=== PATIENT | male | born 1975 | race Caucasian/White ===

== ENCOUNTER 2025-02-17 10:09 | Emergency (ER) | payer BC, SELFPAY ==
[2025-02-17 10:18] VITALS: BP 130/91
--- NOTE | 2025-02-17 11:28 | ED.GENMED ---
History of Present Illness
General
Chief Complaint: Musculo-Skeletal Complaint
Source: patient
Exam Limitations: none
Time Seen by Provider: 02/17/25 11:05
History of Present Illness
History of Present Illness:
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 He has been having discomfort in his right knee for the past week or so. He denies any
specific injury. Pain is located on the lateral aspect of the knee and radiates to the inferior patella. He is also having some clicking with range of motion. Patient was at work today and he stepped down. His knee twisted and he has had
worsening pain since then. Symptoms feel similar to his prior meniscus injury on the contralateral knee.
Past History
Past History
ED Past [facility] History: [facility]
ED Past Surgical History: None, Orthopedic and Other (Hernia repair)
Social History
Tobacco: Non-smoker
Alcohol: Occasional
Drug: None
Personal:
Living: with family
Employment: Employed
Family History
Family History: Other (Family with kidney stones)
Phy Exam
General Physical Exam
General Presentation: well appearing and no apparent distress
General age: appears stated age
General Skin: warm and dry
General Habitus: normal
General Mental: alert
Neurological Exam
Neurological Exam: alert
Musculoskeletal Exam
Musculoskeletal Exam: other (R knee: Mild swelling noted. No erythema or warmth. No deformity. No tenderness to palpation of the joint. ROM of knee elicits pain. He is able to flex to about 90 degrees. 2+ PT pulse. )
Skin Exam
Skin Exam: normal color and warm/dry
Psychiatric Exam
Psychiatric Exam: normal mood/affect
Course
Orders/Labs/Results
Orders:
Orders
02/17/25 11:27
Knee Immobilizer Right-Treatme ONCE
CR Knee- Right 4 Or More View* Urgent
Comment:
Reason For Exam: pain
Vital Signs
Initial and Last Documented VS:
Initial Vital Signs
Temp Pulse Resp BP Pulse Ox
98.4 F 77 16 130/91 98
02/17/25 10:18 02/17/25 10:18 02/17/25 10:18 02/17/25 10:18 02/17/25 10:18
Last Documented Vital Signs
Temp Pulse Resp BP Pulse Ox
98.4 F 77 16 130/91 98
02/17/25 10:18 02/17/25 10:18 02/17/25 12:12 02/17/25 10:18 02/17/25 10:18
MDM/Problems Addressed
Differential Diagnosis Includes:
49yoM here with R knee pain x 1 week. Twisted knee today and pain is now worse. Mild swelling noted. There are no clinical signs of septic arthritis including no erythema, warmth, or pain with micromotion. RLE is neurovascularly intact with palpable
PT pulse. Differential diagnosis includes: ligamentous injury, meniscus injury, doubt fracture
X-rays of knee obtained which appear normal per my interpretation. Patient placed in knee immobilizer. Supportive care discussed. Advised f/u with orthopedics.
*Critical Care Note
Total Time (30-74mins, 75-104mins- exclusive of procedures): Not Applicable
ED Attending Note
-
Portions of this chart may have been created with voice recognition software.� Occasional wrong word or��sound alike� substitutions may have occurred due to the inherent limitations of voice recognition software.
Discharge Plan
Departure
Patient Disposition: Home (Routine Discharge)
Date of Disposition: 02/17/25
Time of Disposition: 12:19
Patient with high blood pressure during this ER visit?: No
Discharge Problem:
Acute pain of right knee
Instructions: Knee Pain (DC)
Prescriptions:
No Action
hydrocodone-acetaminophen 1 TABLET tablet
1 tab PO Q4HPRN PRN (Reason: pain) Qty: 10 0RF
ibuprofen 600 MG tablet
600 mg PO Q6HPRN PRN (Reason: pain) Qty: 20 0RF
ondansetron 4 MG tablet,disintegrating
4 mg PO TIDPRN PRN (Reason: nausea/vomiting) Qty: 10 0RF
hydrocodone-acetaminophen 5-300 mg tablet
1 tab PO Q4H PRN (Reason: Pain) Qty: 14 0RF
Referrals:
Kenney Tobin MD [Family Provider] -
Danny Hale MD [Active] -
Activity Restrictions/Additional Instructions:
Rest, ice, compress, and elevate your knee. Wear knee immobilizer and use crutches as needed. Take Tylenol and ibuprofen for pain.
Please call today to schedule a follow-up with orthopedics.
Interventions
Interventions:
*Risk Screen - Suicide Last Done: 02/17/25 10:18
*Neglect/Abuse Screening Last Done: 02/17/25 10:18
*ED- Fall Risk Assessment Last Done: 02/17/25 12:12
*Nursing Disposition Last Done: 02/17/25 12:29
ED-Musculoskeletal Assessment Last Done: 02/17/25 12:12
Discharge Date and Time
Discharge Date/Time: 02/17/25 12:31
Print Language: WOLOF
== END 2025-02-17 12:31 | disposition home or self-care (01) ==
LOC: EMR 10:09
PROVIDERS: EMERGENCY PHYSICIAN Emergency Medicine; FAMILY PHYSICIAN Family Medicine
DX: M25.561 Pain in right knee (principal); X50.1XXA Overexertion from prolonged static or awkward postures, initial encounter
CPT/HCPCS: 29505; 99283; 73564

== ENCOUNTER 2025-08-04 06:27 | Day surgery (SDC) | payer BC, SELFPAY ==
[2025-07-27 14:15] VITALS: BMI 31.3
[2025-08-04] VITALS (8 sets, daily range): BP systolic 112–144; BP diastolic 60–91; BMI 31.3
--- NOTE | 2025-08-04 08:30 | W.SUR.PREOP ---
Pre-Operative Surgical Note
-
I have examined this patient prior to the performance of the scheduled procedure.
The patient's condition is unchanged from the time of the current History and
Physical and the patient is able to undergo the scheduled procedure.
--- NOTE | 2025-08-04 08:30 | HP.FOC2 ---
Focused History & Physical
Chief Complaint
HPI:
Chief Complaint: Right inguinal hernia
HPI / Indication for Planned Procedure: This is a 49-year-old male who presents with a symptomatic right inguinal hernia. Will plan for robotic right inguinal hernia repair with mesh.
Relevant Past Medical History: Negative
Relevant Social History: Negative
Relevant Family History: Negative
Relevant Past Surgical History: Positive for (Open left inguinal hernia repair with mesh.)
Review of Systems
Review of Pertinent Systems: All Systems Negative
Medication
See Medication form for detailed medications: Yes
Medication List (including Herbals & OTC):
calcium carbonate (Tums) 200 mg PO PRN PRN GERD 07/28/25
testosterone cypionate 200 mg/mL intramuscular syringe 200 mg IM Q3W 07/28/25
Medications Reviewed: Yes
Allergies and Reactions
Patient has Allergies: No
Noted Allergies and Reactions:
Allergy/AdvReac Type Severity Reaction Status Date / Time
No Known Allergies Allergy Verified 07/28/25 13:34
Pertinent Physical Exam
All Other Systems: Negative
Head/Neck: Normal
Diagnosis / Assessment
This is a 49-year-old male who presents with a symptomatic right inguinal hernia. Will plan for robotic right inguinal hernia repair with mesh.
Plan / Procedure
This is a 49-year-old male who presents with a symptomatic right inguinal hernia. Will plan for robotic right inguinal hernia repair with mesh.
Anesthesia/Sedation to be done by Anesthesia Provider: Yes
[2025-08-04] MEDS: TYLENOL 1000 MG PO (08:34)
[2025-08-04] MEDS: NORMOSOL-R/PLASMALYTE-A 1000 IV (08:40)
--- NOTE | 2025-08-04 10:39 | W.IMMPOSTOP ---
Surgical Immed Post Op Note
-
Primary Surgeon: Cristi Trujillo MD
Assisting Surgeon: None
Pre-op Diagnosis: Right inguinal hernia
Post-op Diagnosis: Same
Procedure Performed:
Robotic right inguinal hernia repair with mesh
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
Anesthesia Type: General
Specimen / Cultures: Right cord lipoma
Estimated Blood Loss: 3 cc
Complications: None
Operative Findings: Large right indirect defect through medium sized aperture containing a very large right cord lipoma that was excised. After achieving the critical view of the MPO the space was reinforced with a large right Bard 3D max uncoated
polypropylene mid weight mesh. A small indenting of the peritoneum in the left groin was noted in the setting of his prior open hernia repair though this did not appear to constitute a true recurrence so was left as is.
--- NOTE | 2025-08-04 10:41 | OR.RPT ---
Operative Report
Operative Report
Patient Name: Alex Pa
: 1975
Date of Operation: 08/04/2025
Preoperative Diagnosis: Reducible Inguinal hernia, right
Postoperative Diagnosis: Same
Procedure(s):
1. Robotic right inguinal Hernia Repair with mesh, (APRIL approach)
2. Excision of lesion of a spermatic cord lipoma ([id number])
Surgeon(s):
Dr. Trujillo
Customer Account Technician(s):
JADEN Cr
Anesthesia: General
Estimated Blood Loss: [3] cc
Urine Output: None
Drains/Lines/Implants: Large 3D Max Bard mid weight uncoated polypropylene mesh
Specimens: None
Indication for surgery: The patient has a history of groin pain and noted on exam to have [a Left] Inguinal Hernia(s). Following review of therapeutic options they have elected to undergo a minimally invasive repair.
Operative Findings: Large right indirect defect through medium sized aperture containing a very large right cord lipoma that was excised. After achieving the critical view of the MPO the space was reinforced with a large right Bard 3D max uncoated
polypropylene mid weight mesh. A small indenting of the peritoneum in the left groin was noted in the setting of his prior open hernia repair though this did not appear to constitute a true recurrence so was left as is.
Details of the operation:
The patient was brought to the Operating Room and placed in the supine position with the arms tucked. IV antibiotics were infused and Venodyne stockings placed. Following uneventful induction of general endotracheal anesthesia, an orogastric tube
was placed. The abdomen was prepped and draped in the usual sterile fashion. The abdomen was entered using a Veress technique which required 1 pass(es), pneumoperitoneum to 15 mmHg was obtained without difficulty. An 8mm trochar was passed through
the abdominal wall roughly 20 cm cephalad to the inguinal canal. We then confirmed that no inadvertent injury was made while passing the trocar or Veress needle. We then placed two additional 8 mm ports in the left upper and right upper quadrants.
We then docked the robot with a Prograsper in the left hand port and monopolar scissors in the right. Right indirect defect was immediately noted. There was a small indenting of the peritoneum in the left groin however there was no clear
hernia/recurrence so was left alone. We then began on the right side by creating a flap at the level of the ASIS laterally working our way medially to the medial umbilical fold. Staying onto the peritoneum we were able to circumferentially dissect
around the hernia sac and and peel it off of the underlying spermatic cord and testicular vessels, taking care to preserve them. Medially we identified the midline pubis as well as Hugo's ligament and ensured to dissect 2 cm below the pubic rim
over the bladder. After exposure of the entire myopectineal orifice we identified and reduced: A medium sized indirect inguinal hernia, no direct inguinal hernia, no femoral hernia, and a large cord lipoma, which was removed
We then fixated a large 3D max mesh with a 2-0 Vicryl stitch at coopers medially and superior laterally. The flap was then closed with a running 2-0 barbed monocryl suture ensuring that the tail was cut flush with the medial fat pad so that no
barbs were exposed. During the closure of the flap an Angiocath was inserted and 20 cc of quarter percent Marcaine was instilled. The area in the flap cavity was then evacuated of air confirming that the mesh was flush and there were no folds. A
small rent in the peritoneum was noted and closed with 2-0 Vicryl. All needles and instruments were then removed and the robot was undocked. The abdomen was then desufflated, and pneumoperitoneum evacuated. All skin sites were then closed with 4-0
Monocryl followed by Dermabond. Counts were correct and overall, the patient tolerated the procedure well and was taken to the Recovery Room postoperatively in stable condition.
Valerie was the attending physician and performed the procedure with assistance of the PA above. The assistance of JADEN Cr was required due to the complexity of the procedure. During the procedure Rosalva assisted with port placement, instrument
and needle exchanges, and closure of the wound. Valerie was present for all portions of the case, excluding skin closure.
Cristi Trujillo MD
== END 2025-08-04 12:17 | disposition home or self-care (01) ==
LOC: SDS 06:27
PROVIDERS: ATTENDING PHYSICIAN Surgery; FAMILY PHYSICIAN Family Medicine
DX: K40.90 Unilateral inguinal hernia, without obstruction or gangrene, not specified as recurrent (principal); D17.6 Benign lipomatous neoplasm of spermatic cord
CPT/HCPCS: 49650; 55520; 36415; 88304; 93005; C1781